=== PATIENT | female | born 1965 | race Caucasian/White ===

== ENCOUNTER 2020-09-18 07:05 | Outpatient (REF) | payer MEDICARE, MEDICAID, SELFPAY | END 2020-09-18 07:06 | disposition home or self-care (01) | LOC: HO.WFDLDS 07:05 | PROVIDERS: Visit Provider Internal Medicine | DX: Z20.828 Contact with and (suspected) exposure to other viral communicable diseases (principal) | CPT/HCPCS: U0003 ==